=== PATIENT | female | born 1955 | race Caucasian/White ===

== ENCOUNTER → 2017-04-16 | Outpatient (CLI) | payer OTHER, BC ==
[~2017-04-16] MED LIST: ALDACTONE50 MG PO; BENICAR20 MG PO; BYSTOLIC10 MG PO; BYSTOLIC20 MG PO; CIPROFLOXACIN500 M3 PO; DEPAKOTE500 MG PO; DETROL2 M1 PO; DIAZEPAM 10 MG10 M1 PO; DILANTIN100 MG PO; FUROSEMIDE 40 M40 M1 PO; HYDROCODONE-AP1 EAC6 PO; LINZESS290 MCG PO; LOMOTIL TABLET1 EACH PO; MOM PO; NORVASC 5 MG TAB5 MG PO; NORVASC5 MG PO; PERCOCET 10-321 EACH PO; PHENERGAN 25 MG25 M1 PO; PHENERGAN 25 MG25 MG PO; PROTONIX40 M2 PO; TRIBENZOR 20-51 EACH PO
== END ==
LOC: RAD 09:54
DX: M25.512 Pain in left shoulder (principal); M79.602 Pain in left arm

== ENCOUNTER 2017-05-07 10:12 | Emergency (ER) | payer OTHER, BC ==
[~2017-05-07] VITALS: Ht 177.8 cm; Wt 49.0 kg
[~2017-05-07 10:12] MED LIST changes: -HYDROCODONE-AP1 EAC6 PO
[2017-05-07] MEDS ORDERED: HYDROCODONE-AP1 EAC6 PO (11:11)
[2017-05-07 11:40] VITALS: BP 181/102
== END 2017-05-07 11:40 | disposition home or self-care (01) ==
LOC: ER 10:12
DX: S67.191A Crushing injury of left index finger, initial encounter (principal); G40.909 Epilepsy, unspecified, not intractable, without status epilepticus; I10 Essential (primary) hypertension; G43.909 Migraine, unspecified, not intractable, without status migrainosus; F10.99 Alcohol use, unspecified with unspecified alcohol-induced disorder; Z88.0 Allergy status to penicillin; Z90.710 Acquired absence of both cervix and uterus; Z90.49 Acquired absence of other specified parts of digestive tract; Z88.1 Allergy status to other antibiotic agents; Z88.5 Allergy status to narcotic agent; Z88.6 Allergy status to analgesic agent; Z88.8 Allergy status to other drugs, medicaments and biological substances; X58.XXXA Exposure to other specified factors, initial encounter; Y93.89 Activity, other specified; Y92.89 Other specified places as the place of occurrence of the external cause; Y99.8 Other external cause status

== ENCOUNTER 2017-05-08 13:15 | Emergency (ER) | payer OTHER, BC ==
[~2017-05-08] VITALS: Ht 177.8 cm; Wt 49.0 kg
--- NOTE | ~2017-05-08 | EKG ---
[address] [place] [address] ELECTROCARDIOGRAM REPORT Name: WARD HENRY Room #: [facility]#: [id number] Admission: 05/08/17 Attend Phys: Discharge: Date of : 51 Report #: [id number] THIS REPORT FOR: //name// [facility] ED Test Date: 2017-05-08 Test Time: 13:30:42 Pat Name: WARD HENRY Department: Room: Gender: F Science Technician: TAMI : 1955 Requested By: Anju Best Order Number: [id number] MD: Alen Lincoln Measurements Intervals [place] Rate: 115 P: 82 MD: 181 QRS: 70 QRSD: 97 T: 257 QT: 324 QTc: 448 Interpretive Statements Sinus tachycardia Repol abnrm suggests ischemia, diffuse leads Compared to ECG 09/14/2013 08:29:33 ST and T wave abnormality is more pronounced Electronically Signed On 05-08-2017 16:17:19 TABLE MAKER by Alen Lincoln [email or web address] <ELECTRONICALLY SIGNED> By: Alen Lincoln MD, [facility] 05/08/17 1617 Alen Lincoln MD, FAC /EPI
[~2017-05-08 13:15] MED LIST changes: +HYDROCODONE-AP1 EAC6 PO
[2017-05-08 13:42] LABS: BASOPHILS 0.4 % (0.0-2.0); EOSINOPHILS 0.1 % (0.0-3.0); HEMATOCRIT 41.5 % (37.0-47.0); HEMOGLOBIN 14.5 gm/dL (12.0-15.0); LYMPHOCYTES 13.7 % (24.0-44.0); MCH 37.9 pg (26.0-34.0); MCV 108.4 fL (80.0-100.0); MONOCYTES 6.1 % (1.0-8.0); PLATELET COUNT 364 thou/uL (150-400); POLYS 79.7 % (36.0-66.0); RBC 3.83 mil/uL (4.20-5.00)
[2017-05-08 13:53] LABS: CALCIUM 9.4 mg/dL (8.5-10.1); CREATININE 0.9 mg/dL (0.6-1.0)
[2017-05-08 16:26] VITALS: BP 175/110
[2017-05-09 10:07] LABS: HBsAG-EMPLOYEE EXPOSURE Negative (Negative); HCV AB-EMPLOYEE EXPOSURE <0.1 (0.0-0.9)
== END 2017-05-08 16:47 | disposition home or self-care (01) ==
LOC: ER 13:15
PROVIDERS: Emergency Medicine
DX: G40.909 Epilepsy, unspecified, not intractable, without status epilepticus (principal); I10 Essential (primary) hypertension; G43.909 Migraine, unspecified, not intractable, without status migrainosus; Z90.49 Acquired absence of other specified parts of digestive tract; Z90.710 Acquired absence of both cervix and uterus; Z96.642 Presence of left artificial hip joint

== ENCOUNTER → 2018-04-25 | Outpatient (CLI) | payer OTHER, BC | LOC: CAT 07:48 | DX: R10.32 Left lower quadrant pain (principal) ==

== ENCOUNTER → 2019-08-25 | Outpatient (CLI) | payer BC, OTHER | LOC: ULTRA 12:53 | PROVIDERS: ATTEND Nurse Practitioner | DX: M79.89 Other specified soft tissue disorders (principal) ==

== ENCOUNTER → 2020-01-20 | Outpatient (CLI) | payer BC, OTHER | LOC: LAB 10:03 | PROVIDERS: ATTEND Family Medicine | DX: R51.9 Headache, unspecified (principal); Z20.828 Contact with and (suspected) exposure to other viral communicable diseases ==

== ENCOUNTER → 2020-10-13 | Outpatient (CLI) | payer BC, OTHER | LOC: SJCVCIMAG 08:17 | PROVIDERS: ATTEND Internal Medicine Cardiovascular Disease | DX: I08.2 Rheumatic disorders of both aortic and tricuspid valves (principal); N28.1 Cyst of kidney, acquired; R00.0 Tachycardia, unspecified; R53.83 Other fatigue; I10 Essential (primary) hypertension; E78.5 Hyperlipidemia, unspecified; R06.00 Dyspnea, unspecified; I73.9 Peripheral vascular disease, unspecified; Z87.891 Personal history of nicotine dependence; Z79.899 Other long term (current) drug therapy ==